=== PATIENT | male | born 1980 | race Caucasian/White ===

== ENCOUNTER 2017-06-02 15:57 | Emergency (ER) | payer SELFPAY ==
[~2017-06-02] VITALS: Ht 180.3 cm; Wt 116.0 kg
[~2017-06-02 15:57] MED LIST: EPIPEN ADU0.3 MG/0.3 IM; ZYRTEC10 M2 PO; ZYRTEC10 M3 PO
[2017-06-02 17:09] LABS: HEMATOCRIT 43.4 % (38.0-50.0); HEMOGLOBIN 15.7 G/DL (12.5-16.6); MCH 30.5 PG (29.0-34.0); MCHC 36.2 G/DL (30.0-36.0); MCV 84.3 FL (86-99); PLATELET COUNT 231 K/uL (156-360); RBC DIS.WIDTH-CV 12.7 % (11.8-14.6); RBC DIS.WIDTH-SD 38.9 % (39-53); RED BLOOD COUNT 5.15 M/uL (4.00-5.50); WHITE BLOOD COUNT 8.1 K/uL (4.1-10.2)
[2017-06-02 17:19] LABS: ALBUMIN 4.4 g/dL (3.2-4.8)
[2017-06-02 17:20] LABS: CHLORIDE 106 mEq/L (99-109); POTASSIUM 4.5 mEq/L (3.7-5.4); SODIUM 140 mEq/L (136-147)
[2017-06-02 17:22] LABS: GLUCOSE 117 mg/dL (70-99); TOTAL PROTEIN 8.8 g/dL (6.4-8.3)
[2017-06-02 17:24] LABS: TOTAL BILIRUBIN 0.4 mg/dL (0.0-1.0)
[2017-06-02 17:25] LABS: ALKALINE PHOSPHATASE 47 IU/L (3-129)
[2017-06-02 17:26] LABS: CREATININE 1.2 mg/dL (0.6-1.3); GFR ESTIMATE (CALCULATED) > 59 mL/min/ (58.99-99999)
[2017-06-02 17:27] LABS: AST (GOT) 25 IU/L (2-34); UREA NITROGEN (BUN) 15 mg/dL (9-23)
[2017-06-02 17:28] LABS: ALT (GPT) 35 IU/L (3-49)
[2017-06-02 17:29] LABS: LIPASE 37 U/L (1.0-51.0)
[2017-06-02] MEDS ORDERED: ANTIVERT25 MG PO (18:08)
[2017-06-02 18:39] VITALS: BP 134/73
== END 2017-06-02 18:49 | disposition home or self-care (01) ==
LOC: EME 15:57
PROVIDERS: Emergency Medicine
DX: R42 Dizziness and giddiness (principal); R11.2 Nausea with vomiting, unspecified; R05 Cough; Z72.0 Tobacco use
CPT/HCPCS: 80053; 83690; 85027; 93005; 99281; 99285; J2405; J7030